=== PATIENT | male | born 1935 | race Caucasian/White ===

== ENCOUNTER 2018-04-21 14:01 | Inpatient (IN) | payer MEDICARE ==
[2018-04-20 09:19] LABS: MICROSCOPIC INDICATED
[~2018-04-21] VITALS: Ht 180.3 cm; Wt 75.0 kg
[~2018-04-21 14:01] MED LIST: OMEP20TA62 PO; PRAM0.255 PO; TAMS0.4C2 PO
[2018-04-21] MEDS ORDERED: LACTATED RINGERS 1,000 ML IV SCH (14:30)
[2018-04-21] MEDS ORDERED: FENTANYL PF 100 MCG/2ML ONE ×4 (17:00→19:10)
[2018-04-21] MEDS ORDERED: MITOMYCIN INTVESIC SCH ×2 (17:09→17:30)
[2018-04-21] MEDS ORDERED: CIPROFLOXACIN 400MG/200ML PMX ONE (17:14)
[2018-04-21] MEDS ORDERED: PROPOFOL 10 MG/ML, 20ML ONE (17:14)
[2018-04-21] MEDS ORDERED: ROCURONIUM 10 MG/ML,10ML ONE (17:14)
[2018-04-21] MEDS ORDERED: MITOMYCIN INTVESIC ONE (17:30)
[2018-04-21] MEDS ORDERED: SODIUM CHLORIDE 0.9% INTVESIC ONE (17:30)
[2018-04-21] MEDS ORDERED: SODIUM CHLORIDE 0.9% INTVESIC SCH (17:30)
[2018-04-21] MEDS ORDERED: OPIUM/BELLADONNA SUPP.RECT 16.2-60 MG ONE (17:44)
[2018-04-21] MEDS ORDERED: NALOXONE 0.4 MG/ML, 1ML ONE (18:27)
[2018-04-21] MEDS ORDERED: OXYcodone 5 MG/5 ML ORAL.SOL UDC ONE ×2 (18:50→20:22)
[2018-04-21] MEDS: FENTANYL PF 100 MCG/2ML IV PRN ×7 (18:57→20:16)
[2018-04-21] MEDS ORDERED: ACETAMINOPHEN 325 MG TABLET PO PRN (19:00)
[2018-04-21] MEDS ORDERED: PROMETHAZINE 25 MG/ML, 1ML IV PRN (19:00)
[2018-04-21] MEDS ORDERED: OXYcodone 5 MG/5 ML ORAL.SOL UDC PO PRN (19:00)
[2018-04-21] MEDS ORDERED: ONDANSETRON ODT 8 MG PO PRN (19:00)
[2018-04-21] MEDS ORDERED: HYDROcodone/APAP 7.5-325MG/15ML UDC PO PRN (19:00)
[2018-04-21] MEDS ORDERED: MORPHINE SULFATE 4 MG/ML, 1ML ONE ×2 (19:11→20:22)
[2018-04-21] MEDS: MORPHINE SULFATE 4 MG/ML, 1ML IVPush PRN ×3 (19:13→20:42)
[2018-04-21] MEDS ORDERED: OMNIPAQUE 350 MG/ML, 50 ML BOTTLE ONE (19:37)
[2018-04-22] VITALS: BP 145/69
[2018-04-22] MEDS: LACTATED RINGERS 1,000 ML IV SCH ×5 (00:04→22:08)
[2018-04-22 03:43] VITALS: BP 146/73
[2018-04-22] MEDS ORDERED: OXYB5TAB33 PO (08:09)
[2018-04-22] MEDS ORDERED: DOCU-131 PO (08:10)
[2018-04-22] MEDS ORDERED: HYDR-3237 PO (08:10)
[2018-04-22] MEDS ORDERED: TRIM100T PO (08:11)
[2018-04-22 08:12] VITALS: BP 119/70
[2018-04-22] MEDS ORDERED: BACI120O TP (08:16)
[2018-04-22 12:49] LABS: BASOPHILS # (AUTO) 0.03 x10^3/uL (0-0.1); BASOPHILS % (AUTO) 0 % (0-1); EOSINOPHILS # (AUTO) 0.09 x10^3/uL (0-0.4); EOSINOPHILS % (AUTO) 1 % (1-7); LYMPHOCYTES # (AUTO) 1.52 x10^3/uL (1-3.4); LYMPHOCYTES % (AUTO) 18 % (22-44); MD NO; MEAN CORPUSCULAR HEMOGLOBIN 32.6 pg (27.5-34.5); MEAN CORPUSCULAR HGB CONC 33.8 g/dL (33.2-36.2); MEAN CORPUSCULAR VOLUME 96.3 fL (81-97); MEAN PLATELET VOLUME 6.7 fL (7.4-10.4); MONOCYTES # (AUTO) 0.68 x10^3/uL (0.2-0.8); MONOCYTES % (AUTO) 8 % (2-9); NEUTROPHILS # (AUTO) 6.02 x10^3/uL (1.8-6.8); NEUTROPHILS % (AUTO) 72 % (42-75); PLATELET COUNT 235 x10^3/uL (130-400); RED BLOOD COUNT 4.89 x10^6/uL (4.38-5.82); RED CELL DISTRIBUTION WIDTH 12.3 % (9.4-14.8)
[2018-04-22 13:00] LABS: ALANINE AMINOTRANSFERASE 33 U/L (12-78); ALBUMIN 3.3 g/dL (3.4-5.0); ANION GAP 6 mmol/L (5-15); CALCIUM 8.7 mg/dL (8.5-10.1); CHLORIDE 109 mmol/L (98-107); CREATININE 1.21 mg/dL (0.7-1.3)
[2018-04-22 13:03] LABS: ALKALINE PHOSPHATASE 109 U/L (45-117); BILIRUBIN,TOTAL 0.7 mg/dL (0.2-1.0); TOTAL PROTEIN 6.6 g/dL (6.4-8.2)
[2018-04-22] MEDS: SODIUM CHLORIDE 0.9% 1,000 ML IV SCH ×2 (13:30→21:00)
[2018-04-22 14:09] VITALS: BP 101/62
[2018-04-22] MEDS ORDERED: OMNIPAQUE 350 MG/ML, 100ML BOTTLE ONE (16:54)
[2018-04-22 18:36] VITALS: BP 130/77
[2018-04-22] MEDS: PRAMIPEXOLE 0.25MG TABLET PO SCH (22:30)
[2018-04-22] MEDS ORDERED: LIDOCAINE GEL 2%, 5ML TP PRN (22:30)
[2018-04-22] MEDS: BACITRACIN OINT 500U/GM, 15 GM TP SCH (22:30)
[2018-04-22] MEDS ORDERED: OXYBUTYNIN CHLORIDE 5 MG TABLET PO PRN (22:30)
[2018-04-22] MEDS ORDERED: PRAMIPEXOLE 0.125MG TABLET ONE (23:06)
[2018-04-22] MEDS: DOCUSATE 100 MG CAPSULE PO SCH (23:16)
[2018-04-22] MEDS: TRIMETHOPRIM 100 MG TABLET PO SCH (23:16)
[2018-04-23 02:42] VITALS: BP 125/78
[2018-04-23 06:20] LABS: BASOPHILS # (AUTO) 0.04 x10^3/uL (0-0.1); BASOPHILS % (AUTO) 0 % (0-1); EOSINOPHILS # (AUTO) 0.13 x10^3/uL (0-0.4); EOSINOPHILS % (AUTO) 2 % (1-7); LYMPHOCYTES # (AUTO) 1.42 x10^3/uL (1-3.4); LYMPHOCYTES % (AUTO) 17 % (22-44); MD NO; MEAN CORPUSCULAR HEMOGLOBIN 32.3 pg (27.5-34.5); MEAN CORPUSCULAR HGB CONC 33.7 g/dL (33.2-36.2); MEAN CORPUSCULAR VOLUME 96.1 fL (81-97); MEAN PLATELET VOLUME 6.6 fL (7.4-10.4); MONOCYTES # (AUTO) 0.85 x10^3/uL (0.2-0.8); MONOCYTES % (AUTO) 10 % (2-9); NEUTROPHILS # (AUTO) 5.85 x10^3/uL (1.8-6.8); NEUTROPHILS % (AUTO) 71 % (42-75); PLATELET COUNT 203 x10^3/uL (130-400); RED BLOOD COUNT 4.57 x10^6/uL (4.38-5.82); RED CELL DISTRIBUTION WIDTH 12.5 % (9.4-14.8)
[2018-04-23 06:24] LABS: ANION GAP 5 mmol/L (5-15); CHLORIDE 108 mmol/L (98-107); CREATININE 1.09 mg/dL (0.7-1.3)
[2018-04-23] MEDS: SODIUM CHLORIDE 0.9% 1,000 ML IV SCH ×2 (06:26→20:15)
[2018-04-23] MEDS: TAMSULOSIN 0.4 MG CAP.ER.24H PO SCH (07:25)
[2018-04-23] MEDS: ACETAMINOPHEN 325 MG TABLET PO PRN ×2 (07:25→15:54)
[2018-04-23] MEDS: OMEPRAZOLE 20 MG CAPSULE.DR PO SCH (07:26)
[2018-04-23] MEDS: DOCUSATE 100 MG CAPSULE PO SCH ×2 (07:26→20:39)
[2018-04-23] MEDS: BACITRACIN OINT 500U/GM, 15 GM TP SCH ×3 (09:00→21:00)
[2018-04-23] MEDS: PRAMIPEXOLE 0.25MG TABLET PO SCH ×2 (09:24→20:39)
[2018-04-23] MEDS: TRIMETHOPRIM 100 MG TABLET PO SCH ×2 (09:24→20:38)
[2018-04-23 15:12] VITALS: BP 154/80
[2018-04-23] MEDS: LACTATED RINGERS 1,000 ML IV SCH (15:30)
[2018-04-23 16:00] LABS: TOTAL PROTEIN 6.2 g/dL (6.4-8.2)
[2018-04-23 20:22] VITALS: BP 151/75
[2018-04-23] MEDS ORDERED: PRAMIPEXOLE 0.125MG TABLET ONE (20:35)
[2018-04-23] MEDS: HYDROcodone/APAP 5/325 TABLET PO PRN (20:39)
[2018-04-24 01:44] VITALS: BP 143/65
[2018-04-24] MEDS: LACTATED RINGERS 1,000 ML IV SCH (02:28)
[2018-04-24] MEDS: SODIUM CHLORIDE 0.9% 1,000 ML IV SCH (03:00)
[2018-04-24 04:43] LABS: BASOPHILS # (AUTO) 0.03 x10^3/uL (0-0.1); BASOPHILS % (AUTO) 1 % (0-1); EOSINOPHILS # (AUTO) 0.23 x10^3/uL (0-0.4); EOSINOPHILS % (AUTO) 4 % (1-7); LYMPHOCYTES # (AUTO) 1.33 x10^3/uL (1-3.4); LYMPHOCYTES % (AUTO) 21 % (22-44); MD NO; MEAN CORPUSCULAR HEMOGLOBIN 32.3 pg (27.5-34.5); MEAN CORPUSCULAR HGB CONC 33.6 g/dL (33.2-36.2); MEAN PLATELET VOLUME 6.8 fL (7.4-10.4); MONOCYTES # (AUTO) 0.64 x10^3/uL (0.2-0.8); MONOCYTES % (AUTO) 10 % (2-9); NEUTROPHILS # (AUTO) 4.23 x10^3/uL (1.8-6.8); NEUTROPHILS % (AUTO) 66 % (42-75); PLATELET COUNT 194 x10^3/uL (130-400); RED CELL DISTRIBUTION WIDTH 12.3 % (9.4-14.8)
[2018-04-24 07:00] VITALS: BP 128/76
[2018-04-24] MEDS ORDERED: PRAMIPEXOLE 0.125MG TABLET ONE ×2 (07:50→09:47)
[2018-04-24] MEDS: TRIMETHOPRIM 100 MG TABLET PO SCH (07:54)
[2018-04-24] MEDS: BACITRACIN OINT 500U/GM, 15 GM TP SCH (07:54)
[2018-04-24] MEDS: OMEPRAZOLE 20 MG CAPSULE.DR PO SCH (07:54)
[2018-04-24] MEDS: TAMSULOSIN 0.4 MG CAP.ER.24H PO SCH (07:55)
[2018-04-24] MEDS: DOCUSATE 100 MG CAPSULE PO SCH (07:55)
[2018-04-24] MEDS: HYDROcodone/APAP 5/325 TABLET PO PRN (08:59)
[2018-04-24] MEDS: PRAMIPEXOLE 0.25MG TABLET PO SCH (09:00)
[2018-04-24 12:49] VITALS: BP 135/74
== END 2018-04-24 14:10 | disposition home or self-care (01) | DRG 668 ==
LOC: OR 14:01 → 4NOR 21:50 → INTOOBSV 23:19 → OR 23:19 → OBSVTOIN 04-24 00:14 → DCLOUNGE 04-24 13:54
PROVIDERS: ADMIT Urology; ATTEND Urology
PROC: 0TBB8ZZ Excision of Bladder, Via Natural or Artificial Opening Endoscopic (ICD-10-PCS; 2018-04-21)
PROC: BT101ZZ Fluoroscopy of Bladder using Low Osmolar Contrast (ICD-10-PCS; 2018-04-21)
PROC: 0W993ZZ Drainage of Right Pleural Cavity, Percutaneous Approach (ICD-10-PCS; principal; 2018-04-23)
PROC: 0T5B8ZZ Destruction of Bladder, Via Natural or Artificial Opening Endoscopic (ICD-10-PCS; 2018-04-24)
DX: C67.9 Malignant neoplasm of bladder, unspecified (principal); J96.01 Acute respiratory failure with hypoxia; J90 Pleural effusion, not elsewhere classified; J95.89 Other postprocedural complications and disorders of respiratory system, not elsewhere classified; E78.5 Hyperlipidemia, unspecified; G20 Parkinson's disease; K21.9 Gastro-esophageal reflux disease without esophagitis; N40.0 Benign prostatic hyperplasia without lower urinary tract symptoms; Y83.8 Other surgical procedures as the cause of abnormal reaction of the patient, or of later complication, without mention of misadventure at the time of the procedure; R31.0 Gross hematuria; Z80.0 Family history of malignant neoplasm of digestive organs; Z80.3 Family history of malignant neoplasm of breast; Z82.49 Family history of ischemic heart disease and other diseases of the circulatory system; Z90.79 Acquired absence of other genital organ(s); Z95.0 Presence of cardiac pacemaker; Z95.3 Presence of xenogenic heart valve
CPT/HCPCS: 32555; 36415; 71045; 71275; 74420; 80048; 80053; 81001; 82945; 83615; 83735; 84100; 84155; 84157; 85025; 87070; 87086; 87205; 88305; 89051; 93005; 93306; J0744; J2310; J2704; J3010; Q9967; J7030; J7120; J9280